=== PATIENT | female | born 1995 | race Caucasian/White ===

== ENCOUNTER 2019-08-14 21:12 | Emergency (ER) | payer BC, OTHER ==
[2019-08-14] MEDS ORDERED: solu-MEDROL 125 MG IV ONE (21:39)
[2019-08-14] MEDS ORDERED: BENADRYL 50 MG/ML IV ONE (21:39)
[2019-08-14] MEDS ORDERED: Inapsine 5 MG/2 ML IV ONE (21:39)
[2019-08-14] MEDS ORDERED: Sodium Chloride 0.9% 1000 ML 1,000 ML IV STA (21:39)
[2019-08-14] MEDS ORDERED: TORAdol 30 mg Injection IV ONE (21:39)
[2019-08-14] MEDS ORDERED: TYLENOL 325 MG PO ONE (21:39)
--- NOTE | 2019-08-14 21:46 | ERPHSYRPT ---
- History of Present Illness Time Seen by Provider: 08/14/19 21:21 Source: patient Exam Limitations: no limitations Patient Subjective Stated Complaint: pt c/o headache since 1300 today, behind eyes and across forehead. Triage Nursing Assessment: pt c/o headache across forehead and behind her eyes since 1300 today, throbbing, sharp pain. Pt took tylenol twice today with no relief. Physician History: Location: frontal headache Quality: sharp Radiation: into posterior head Severity: moderate Duration: 1 pm today Timing: gradual, not thunder clap Modifying factors/associated signs and symptoms: h/o headaches but no official dx of migraines. No red flag symptoms for headaches. no falls or trauma. Has tried home OTC medication and cold/hot rags. Timing/Duration: today Quality: sharpness Head Pain Location: frontal Severity of Pain-Max: none Severity of Pain-Current: none Recent Head Trauma: no recent headache/trauma Modifying Factors: Improves With: cold therapy, rest Associated Symptoms: denies symptoms Previous symptoms: other (h/o fequent headaches, but no dx of migraine) Allergies/Adverse Reactions: shrimp Allergy (Severe, Verified 08/14/19 21:34) Difficulty Breathing bee pollen Adverse Reaction (Verified 08/14/19 21:35) Swelling Home Medications: Aripiprazole [Abilify] 5 mg PO DAILY 08/14/19 [History] Paroxetine HCl [Paxil] 20 mg PO DAILY 08/14/19 [History] Hx Tetanus, Diphtheria Vaccination/Date Given: Yes Hx Influenza Vaccination/Date Given: No Hx Pneumococcal Vaccination/Date Given: No Immunizations Up to Date: Yes - Review of Systems Constitutional: No Fever, No Chills Eyes: No Symptoms Ears, Nose, & Throat: No Symptoms Respiratory: No Cough, No Dyspnea Cardiac: No Chest Pain, No Edema, No Syncope Abdominal/Gastrointestinal: No Abdominal Pain, No Nausea, No Vomiting, No Diarrhea Genitourinary Symptoms: No Dysuria Musculoskeletal: No Back Pain, No Neck Pain Skin: No Rash Neurological: Headache, No Dizziness, No Focal Weakness, No Sensory Changes Psychological: No Symptoms Endocrine: No Symptoms All Other Systems: Reviewed and Negative - Past Medical History Pertinent Past Medical History: Yes Neurological History: No Pertinent History ENT History: No Pertinent History Cardiac History: No Pertinent History Respiratory History: No Pertinent History Endocrine Medical History: No Pertinent History Musculoskeletal History: No Pertinent History GI Medical History: No Pertinent History History: No Pertinent History Psycho-Social History: Anxiety, Attention Deficit Disorder, Bipolar, Depression Female Reproductive Disorders: Menstrual Problems - Past Surgical History Past Surgical History: No - Social History Smoking Status: Current every day smoker How long have you smoked: 3 yrs Exposure to second hand smoke: Yes Drug Use: none Patient Lives Alone: No - Female History Hx Last Menstrual Period: unsure Hx Now: No - Nursing Vital Signs Nursing Vital Signs: Initial Vital Signs Temperature 97.9 F 08/14/19 21:25 Pulse Rate 62 08/14/19 21:25 Respiratory Rate 18 08/14/19 21:25 Blood Pressure 115/52 08/14/19 21:25 O2 Sat by Pulse Oximetry 98 08/14/19 21:25 Pain Scale Pain Intensity 8 - Physical Exam General Appearance: no apparent distress Eye Exam: PERRL/EOMI Ears, Nose, Throat Exam: normal ENT inspection, moist mucous membranes Neck Exam: normal inspection, supple, full range of motion, No meningismus Respiratory Exam: normal breath sounds, lungs clear Cardiovascular Exam: regular rate/rhythm, normal heart sounds Gastrointestinal/Abdominal Exam: soft, No tenderness, No distention Back Exam: normal inspection, normal range of motion Mental Status Exam: alert, 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 Speech: clear and fluent with good repetition, comprehension, and naming. Motor: There is no pronator drift of out-stretched arms. Muscle bulk and tone are normal. Strength is full bilaterally. Reflexes: Reflexes are 2+ and symmetric at the biceps, triceps, knees, and ankles. Plantar responses are flexor. Sensory: Light touch sense are intact in bilateral upper and lower extremities. There is no sign of neglect. Coordination: Rapid alternating movements are intact. There is no dysmetria on [id number] and [id number]. There are no abnormal or extraneous movements. Romberg is absent. Gait/Stance: Posture is normal. Gait is steady with normal steps, base, arm swing, and turning. Heel and toe walking are normal. Tandem gait is normal. No obvious deformity, sensation intact, 2+ capillary refill, 2 point tactile discrimination intact. 5 out of 5 strength. Full range of motion without pain. Compartments are soft, nontender. Overlying skin shows no tenting, bruising, ecchymosis. Ordered Tests: Active Orders 24 hr Category Date Time Status IV Insertion STAT Care 08/14/19 21:39 Active Pulse Oximetry (ED) STAT Care 08/14/19 21:39 Active HEAD WITHOUT CONTRAST [CT] Stat Exams 08/14/19 22:27 Taken CBC W DIFF Stat Lab 08/14/19 22:00 Completed CMP Stat Lab 08/14/19 22:00 Completed HCG QUALITATIVE,SERUM Stat Lab 08/14/19 22:00 Completed UA W/RFX UR CULTURE Stat Lab 08/14/19 21:39 Ordered Medication Summary Discontinued Medications Generic Name Dose Route Start Last Admin Trade Name Freq PRN Reason Stop Dose Admin Acetaminophen 975 mg 08/14/19 21:39 08/14/19 22:44 Tylenol 325 Mg PO 08/14/19 21:40 975 mg STAT ONE Administration Acetaminophen Confirm 08/14/19 22:44 Tylenol 325 Mg Administered 08/14/19 22:45 Dose 975 mg .ROUTE .STK-MED ONE Diphenhydramine HCl 50 mg 08/14/19 21:39 08/14/19 22:41 Benadryl 50 Mg/Ml IV 08/14/19 21:40 50 mg STAT ONE Administration Diphenhydramine HCl Confirm 08/14/19 22:39 Benadryl 50 Mg/Ml Administered 08/14/19 22:40 Dose 50 mg .ROUTE .STK-MED ONE Droperidol 1.25 mg 08/14/19 21:39 08/14/19 22:41 Inapsine 5 Mg/2 Ml IV 08/14/19 21:40 1.25 mg STAT ONE Administration Droperidol Confirm 08/14/19 22:39 Inapsine 5 Mg/2 Ml Administered 08/14/19 22:40 Dose 5 mg .ROUTE .STK-MED ONE Sodium Chloride 1,000 mls @ 999 mls/hr 08/14/19 21:39 08/14/19 22:43 Sodium Chloride 0.9% 1000 Ml IV 08/14/19 22:39 999 mls/hr .Q1H1M STA Administration Sodium Chloride Confirm 08/14/19 22:40 Sodium Chloride 0.9% 1000 Ml Administered 08/14/19 22:41 Dose 1,000 mls @ ud .ROUTE .STK-MED ONE Ketorolac Tromethamine 30 mg 08/14/19 21:39 08/14/19 22:42 Toradol 30 Mg Injection IV 08/14/19 21:40 30 mg STAT ONE Administration Ketorolac Tromethamine Confirm 08/14/19 22:39 Toradol 30 Mg Injection Administered 08/14/19 22:40 Dose 30 mg .ROUTE .STK-MED ONE Methylprednisolone Sodium Succinate 125 mg 08/14/19 21:39 08/14/19 22:43 Solu-Medrol 125 Mg IV 08/14/19 21:40 125 mg STAT ONE Administration Methylprednisolone Sodium Succinate Confirm 08/14/19 22:39 Solu-Medrol 125 Mg Administered 08/14/19 22:40 Dose 125 mg .ROUTE .STK-MED ONE Lab/Rad Data: Laboratory Result Diagrams 08/14/19 22:00 08/14/19 22:00 Laboratory Results 08/14/19 08/14/19 08/14/19 Range/Units 22:00 22:00 22:00 WBC 6.3 (4.0-10.5) K/mm3 RBC 4.62 (4.1-5.4) M/mm3 Hgb 13.8 (12.0-16.0) gm/dl Hct 41.9 (35-47) % MCV 90.7 (78-100) fl MCH 29.9 (26-32) pg MCHC 32.9 (32-36) g/dl RDW 12.9 (11.5-14.0) % Plt Count 326 (150-450) K/mm3 MPV 10.7 (7.5-11.0) fl Gran % 42.0 (36.0-66.0) % Eos # (Auto) 0.21 (0-0.5) Absolute Lymphs (auto) 2.85 (1.0-4.6) Absolute Monos (auto) 0.53 (0.0-1.3) Lymphocytes % 45.6 H (24.0-44.0) % Monocytes % 8.5 (0.0-12.0) % Eosinophils % 3.4 (0.00-5.0) % Basophils % 0.5 (0.0-0.4) % Absolute Granulocytes 2.63 (1.4-6.9) Basophils # 0.03 (0-0.4) Sodium 141 (137-145) mmol/L Potassium 4.1 (3.5-5.1) mmol/L Chloride 105 (98-107) mmol/L Carbon Dioxide 29 (22-30) mmol/L Anion Gap 10.1 (5-15) MEQ/L BUN 5 L (7-17) mg/dL Creatinine 0.68 (0.52-1.04) mg/dL Estimated GFR > 60.0 ML/MIN Glucose 88 (74-106) mg/dL Calcium 9.6 (8.4-10.2) mg/dL Total Bilirubin 0.50 (0.2-1.3) mg/dL AST 42 H (14-36) U/L ALT 44 H (0-35) U/L Alkaline Phosphatase 74 (38-126) U/L Serum Total Protein 7.9 (6.3-8.2) g/dL Albumin 4.3 (3.5-5.0) g/dL Serum , Qual NEGATIVE (Negative) - Progress Progress: improved Air Movement: good Progress Note: 08/14/19 21:46 Ddx includes head bleed, tumor, tension headache, migraine We will give migraine cocktail, basic labs, fluids, head CT 08/14/19 23:29 CT scan is negative. Patient feels improved with medication. Neurological reexam remained normal. At this point, patient will need reexam with PCP in the AM. Otherwise, return here for new or changing symptoms. - Departure Departure Disposition: Home Clinical Impression: Headache Condition: Stable Critical Care Time: No Referrals: LAZARA SHAY NP [Primary Care Provider] - Instructions: Headache, Adult (DC) Additional Instructions: Neurological reexam in 24 hours with PCP. return for new or changing symptoms.
[2019-08-14 22:05] LABS: Absolute Neutrophil Ct (ANC) 2.63 (1.4-6.9); BASOPHIL % 0.5 % (0.0-0.4); Basophil (Absolute #) 0.03 (0-0.4); Eosinophil % 3.4 % (0.00-5.0); Eosinophil (Absolute #) 0.21 (0-0.5); Hematocrit 41.9 % (35-47); Hemoglobin 13.8 gm/dl (12.0-16.0); Lymphocyte (Absolute #) 2.85 (1.0-4.6); Lymphocytes % 45.6 % (24.0-44.0); Mean Cell Volume 90.7 fl (78-100); Mean Corpuscular Hemoglobin 29.9 pg (26-32); Mean Corpuscular Hgb Concent. 32.9 g/dl (32-36); Mean Platelet Volume 10.7 fl (7.5-11.0); Monocyte (Absolute #) 0.53 (0.0-1.3); Monocytes % 8.5 % (0.0-12.0); Platelet Count 326 K/mm3 (150-450); Red Blood Count 4.62 M/mm3 (4.1-5.4); Red Cell Distribution Width 12.9 % (11.5-14.0); White Blood Count 6.3 K/mm3 (4.0-10.5)
[2019-08-14 22:20] LABS: ALBUMIN 4.3 g/dL (3.5-5.0); ALKALINE PHOSPHATASE 74 U/L (38-126); ANION GAP 10.1 MEQ/L (5-15); BLOOD UREA NITROGEN 5 mg/dL (7-17); CHLORIDE 105 mmol/L (98-107); Calcium 9.6 mg/dL (8.4-10.2); Carbon Dioxide 29 mmol/L (22-30); Creatinine 1 0.68 mg/dL (0.52-1.04); Glucose 88 mg/dL (74-106); Potassium 4.1 mmol/L (3.5-5.1); SGOT/AST 42 U/L (14-36); SGPT/ALT 44 U/L (0-35); SODIUM 141 mmol/L (137-145); Total Protein 7.9 g/dL (6.3-8.2)
[2019-08-14] MEDS ORDERED: TORAdol 30 mg Injection ONE (22:39)
[2019-08-14] MEDS ORDERED: Inapsine 5 MG/2 ML ONE (22:39)
[2019-08-14] MEDS ORDERED: solu-MEDROL 125 MG ONE (22:39)
[2019-08-14] MEDS ORDERED: BENADRYL 50 MG/ML ONE (22:39)
[2019-08-14] MEDS ORDERED: Sodium Chloride 0.9% 1000 ML 1,000 ML ONE (22:40)
[2019-08-14] MEDS ORDERED: TYLENOL 325 MG ONE (22:44)
[2019-08-14 23:22] LABS: Appearance CLEAR (CLEAR); Bilirubin NEGATIVE (NEGATIVE); Blood SMALL Ery/ul (0-5); Glucose NEGATIVE (NEGATIVE); Ketones NEGATIVE (NEGATIVE); Leukocyte Esterase NEGATIVE (NEGATIVE); Nitrite NEGATIVE (NEGATIVE); Protein,Urine Dip NEGATIVE (Negative); Specific Gravity 1.005 (1.005-1.025); Urobilinogen NEGATIVE mg/dL (0-1); WBC 0-2 /HPF (0-5)
[2019-08-14 23:46] VITALS: BP 121/95; PULSE 64; O2SAT 97
--- NOTE | 2019-08-15 08:48 | XRAY ---
Indication: Headache and dizziness. Multiple contiguous axial images obtained through the head without contrast. Comparison: None Normal appearing brain parenchyma, ventricles, and bony calvarium. Near complete opacification of the left middle ear and left mastoid air cells presumed inflammatory. Remaining visualized paranasal sinuses and right mastoid air cells are clear. Impression: 1. Left middle ear and left mastoid air cell opacification presumed inflammatory. 2. Remaining CT head without contrast exam is normal. Comment: Preliminary interpretation was made by [facility]. No discrepancy.
== END 2019-08-14 23:47 | disposition home or self-care (01) ==
LOC: ED 21:12
DX: R51 Headache (principal)
CPT/HCPCS: 36000; 36415; 70450; 80053; 81001; 81025; 85025; 94760; 96374; 96375; 99284; J1200; J1885; J2930; A9270-GY

== ENCOUNTER 2020-03-05 19:05 | Emergency (ER) | payer BC, OTHER ==
--- NOTE | 2020-03-05 19:09 | ERPHSYRPT ---
- History of Present Illness Time Seen by Provider: 03/05/20 19:09 Historian: patient Exam Limitations: no limitations Physician History: This is a 24-year-old obese white female who has had no prior abdominal surgeries and presents with 2-week history of lower abdominal pain. Patient does not have regular menstrual periods. Patient denies nausea vomiting diarrhea. She denies vaginal discharge. Pain has worsened in the last 2 weeks. Timing/Duration: week(s) Abdominal Pain Onset Location: RLQ, LLQ Pain Radiation: no radiation Severity of Pain-Max: moderate Severity of Pain-Current: mild Modifying Factors: Improves With: nothing Associated Symptoms: denies symptoms Previous symptoms: no prior history Allergies/Adverse Reactions: shrimp Allergy (Severe, Verified 08/14/19 21:34) Difficulty Breathing bee pollen Adverse Reaction (Verified 08/14/19 21:35) Swelling Home Medications: Aripiprazole [Abilify] 5 mg PO DAILY 08/14/19 [History] Paroxetine HCl [Paxil] 40 mg PO DAILY 08/14/19 [History] Hx Tetanus, Diphtheria Vaccination/Date Given: Yes Hx Influenza Vaccination/Date Given: No Hx Pneumococcal Vaccination/Date Given: No Travel Risk - International Travel Have you traveled outside of the country in past 3 weeks: No - Coronavirus Screening Are you exhibiting any of the following symptoms?: No Close contact with a COVID-19 positive Pt in past 14-21 Days: No - Review of Systems Constitutional: No Symptoms Eyes: No Symptoms Ears, Nose, & Throat: No Symptoms Respiratory: No Symptoms Cardiac: No Symptoms Abdominal/Gastrointestinal: Abdominal Pain (Bilateral lower quadrants), No Nausea, No Vomiting, No Diarrhea, No Constipation Genitourinary Symptoms: No Symptoms, No Dysuria, No Urgency, No Urinary Retention, No Flank Pain Musculoskeletal: No Symptoms Skin: No Symptoms Neurological: No Symptoms Psychological: No Symptoms Endocrine: No Symptoms Hematologic/Lymphatic: No Symptoms Immunological/Allergic: No Symptoms All Other Systems: Reviewed and Negative - Past Medical History Pertinent Past Medical History: Yes Neurological History: No Pertinent History ENT History: No Pertinent History Cardiac History: No Pertinent History Respiratory History: No Pertinent History Endocrine Medical History: No Pertinent History Musculoskeletal History: No Pertinent History GI Medical History: No Pertinent History History: No Pertinent History Psycho-Social History: Anxiety, Attention Deficit Disorder, Bipolar, Depression Female Reproductive Disorders: Menstrual Problems - Past Surgical History Past Surgical History: No - Social History Smoking Status: Current every day smoker How long have you smoked: 3 yrs Exposure to second hand smoke: Yes Drug Use: none Patient Lives Alone: No - Nursing Vital Signs Nursing Vital Signs: Initial Vital Signs Temperature 98.3 F 03/05/20 19:20 Pulse Rate 77 03/05/20 19:20 Respiratory Rate 18 03/05/20 19:20 Blood Pressure 135/71 03/05/20 19:20 O2 Sat by Pulse Oximetry 97 03/05/20 19:20 Pain Scale Pain Intensity 5 - Physical Exam General Appearance: no apparent distress, alert, anxiety Eye Exam: PERRL/EOMI, eyes nml inspection Ears, Nose, Throat Exam: normal ENT inspection, moist mucous membranes Neck Exam: normal inspection, non-tender, supple, full range of motion Respiratory Exam: normal breath sounds, lungs clear, airway intact, No chest tenderness, No respiratory distress Cardiovascular Exam: regular rate/rhythm, normal heart sounds, normal peripheral pulses Gastrointestinal/Abdomen Exam: soft, normal bowel sounds, tenderness (Mild bilateral lower quadrant pain), guarding, No rebound Pelvic Exam: not done Rectal Exam: not done Back Exam: normal inspection, normal range of motion, No CVA tenderness Extremity Exam: normal inspection, normal range of motion, pelvis stable Neurologic Exam: alert, oriented x 3, 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, 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 Skin Exam: normal color, warm, dry Lymphatic Exam: No adenopathy SpO2 Interpretation: normal O2 Delivery: Room Air - Course Nursing assessment & vital signs reviewed: Yes Ordered Tests: Active Orders 24 hr Category Date Time Status IV Insertion STAT Care 03/05/20 20:03 Active ABDOMEN AND PELVIS W/0 CONTRAS [CT] Stat Exams 03/05/20 20:00 Taken AMYLASE Stat Lab 03/05/20 20:40 Completed CBC W DIFF Stat Lab 03/05/20 20:40 Completed CMP Stat Lab 03/05/20 20:40 Completed CULTURE,URINE Stat Lab 03/05/20 Received HCG,QUALITATIVE URINE Stat Lab 03/05/20 20:30 Completed LIPASE Stat Lab 03/05/20 20:40 Completed Lactic Acid Stat Lab 03/05/20 12:14 Completed UA W/RFX UR CULTURE Stat Lab 03/05/20 Completed Medication Summary Discontinued Medications Generic Name Dose Route Start Last Admin Trade Name Freq PRN Reason Stop Dose Admin Hydromorphone HCl 0.5 mg 03/05/20 20:03 03/05/20 20:43 Hydromorphone 1 Mg/Ml Ampule IV 03/05/20 20:04 0.5 mg STAT ONE Administration Hydromorphone HCl Confirm 03/05/20 20:40 Hydromorphone 1 Mg/Ml Ampule Administered 03/05/20 20:41 Dose 1 mg .ROUTE .STK-MED ONE Sodium Chloride 1,000 mls @ 999 mls/hr 03/05/20 20:03 03/05/20 20:42 Sodium Chloride 0.9% 1000 Ml IV 03/05/20 21:03 999 mls/hr .Q1H1M STA Administration Sodium Chloride Confirm 03/05/20 20:36 Sodium Chloride 0.9% 1000 Ml Administered 03/05/20 20:37 Dose 1,000 mls @ ud .ROUTE .STK-MED ONE Ondansetron HCl 4 mg 03/05/20 20:03 03/05/20 20:43 Zofran 4 Mg/2 Ml Vial IV 03/05/20 20:04 4 mg STAT ONE Administration Ondansetron HCl Confirm 03/05/20 20:36 Zofran 4 Mg/2 Ml Vial Administered 03/05/20 20:37 Dose 4 mg .ROUTE .STK-MED ONE Lab/Rad Data: Laboratory Result Diagrams 03/05/20 20:40 03/05/20 20:40 Laboratory Results 03/05/20 03/05/20 03/05/20 Range/Units Unknown 20:40 20:40 WBC 7.3 (4.0-10.5) K/mm3 RBC 4.71 (4.1-5.4) M/mm3 Hgb 13.7 (12.0-16.0) gm/dl Hct 42.6 (35-47) % MCV 90.4 (78-100) fl MCH 29.1 (26-32) pg MCHC 32.2 (32-36) g/dl RDW 13.1 (11.5-14.0) % Plt Count 282 (150-450) K/mm3 MPV 11.3 H (7.5-11.0) fl Gran % 59.4 (36.0-66.0) % Eos # (Auto) 0.11 (0-0.5) Absolute Lymphs (auto) 2.32 (1.0-4.6) Absolute Monos (auto) 0.51 (0.0-1.3) Lymphocytes % 31.7 (24.0-44.0) % Monocytes % 7.0 (0.0-12.0) % Eosinophils % 1.5 (0.00-5.0) % Basophils % 0.4 (0.0-0.4) % Absolute Granulocytes 4.35 (1.4-6.9) Basophils # 0.03 (0-0.4) Sodium 140 (137-145) mmol/L Potassium 3.9 (3.5-5.1) mmol/L Chloride 107 (98-107) mmol/L Carbon Dioxide 25 (22-30) mmol/L Anion Gap 11.8 (5-15) MEQ/L BUN 13 (7-17) mg/dL Creatinine 0.67 (0.52-1.04) mg/dL Estimated GFR > 60.0 ML/MIN Glucose 93 (74-106) mg/dL Lactic Acid (0.4-2.0) Calcium 9.3 (8.4-10.2) mg/dL Total Bilirubin 0.70 (0.2-1.3) mg/dL AST 42 H (14-36) U/L ALT 61 H (0-35) U/L Alkaline Phosphatase 62 (38-126) U/L Serum Total Protein 7.6 (6.3-8.2) g/dL Albumin 4.2 (3.5-5.0) g/dL Amylase 44 (30-110) U/L Lipase 17 L (23-300) U/L Urine Color YELLOW (YELLOW) Urine Appearance SLIGHTLY CLOUDY (CLEAR) Urine pH 6.0 (5-6) Ur Specific [place] 1.018 (1.005-1.025) Urine Protein NEGATIVE (Negative) Urine Ketones NEGATIVE (NEGATIVE) Urine Blood LARGE (0-5) Mukesh/ul Urine Nitrite NEGATIVE (NEGATIVE) Urine Bilirubin NEGATIVE (NEGATIVE) Urine Urobilinogen NEGATIVE (0-1) mg/dL Ur Leukocyte Esterase NEGATIVE (NEGATIVE) Urine WBC (Auto) 11-15 (0-5) /HPF Urine RBC (Auto) 51-100 (0-2) /HPF U Epithel Cells (Auto) RARE (FEW) /HPF Urine Bacteria (Auto) RARE (NEGATIVE) /HPF Urine Mucus (Auto) SLIGHT (NEGATIVE) /HPF Urine Culture Reflexed YES (NO) Urine Glucose NEGATIVE (NEGATIVE) mg/dL Urine HCG, Qual (Negative) 03/05/20 03/05/20 Range/Units 20:30 12:14 WBC (4.0-10.5) K/mm3 RBC (4.1-5.4) M/mm3 Hgb (12.0-16.0) gm/dl Hct (35-47) % MCV (78-100) fl MCH (26-32) pg MCHC (32-36) g/dl RDW (11.5-14.0) % Plt Count (150-450) K/mm3 MPV (7.5-11.0) fl Gran % (36.0-66.0) % Eos # (Auto) (0-0.5) Absolute Lymphs (auto) (1.0-4.6) Absolute Monos (auto) (0.0-1.3) Lymphocytes % (24.0-44.0) % Monocytes % (0.0-12.0) % Eosinophils % (0.00-5.0) % Basophils % (0.0-0.4) % Absolute Granulocytes (1.4-6.9) Basophils # (0-0.4) Sodium (137-145) mmol/L Potassium (3.5-5.1) mmol/L Chloride (98-107) mmol/L Carbon Dioxide (22-30) mmol/L Anion Gap (5-15) MEQ/L BUN (7-17) mg/dL Creatinine (0.52-1.04) mg/dL Estimated GFR ML/MIN Glucose (74-106) mg/dL Lactic Acid 0.7 (0.4-2.0) Calcium (8.4-10.2) mg/dL Total Bilirubin (0.2-1.3) mg/dL AST (14-36) U/L ALT (0-35) U/L Alkaline Phosphatase (38-126) U/L Serum Total Protein (6.3-8.2) g/dL Albumin (3.5-5.0) g/dL Amylase (30-110) U/L Lipase (23-300) U/L Urine Color (YELLOW) Urine Appearance (CLEAR) Urine pH (5-6) Ur Specific [place] (1.005-1.025) Urine Protein (Negative) Urine Ketones (NEGATIVE) Urine Blood (0-5) Mukesh/ul Urine Nitrite (NEGATIVE) Urine Bilirubin (NEGATIVE) Urine Urobilinogen (0-1) mg/dL Ur Leukocyte Esterase (NEGATIVE) Urine WBC (Auto) (0-5) /HPF Urine RBC (Auto) (0-2) /HPF U Epithel Cells (Auto) (FEW) /HPF Urine Bacteria (Auto) (NEGATIVE) /HPF Urine Mucus (Auto) (NEGATIVE) /HPF Urine Culture Reflexed (NO) Urine Glucose (NEGATIVE) mg/dL Urine HCG, Qual NEGATIVE (Negative) - Progress Progress: unchanged Progress Note: 03/05/20 22:42 CAT scan of the abdomen and pelvis shows no acute intra-abdominal abnormality Counseled pt/family regarding: lab results, diagnosis, need for follow-up, rad results - Departure Departure Disposition: Home Clinical Impression: Abdominal pain Condition: Stable Critical Care Time: No Referrals: LAZARA SHAY NP [NON-STAFF PHY W/O PRIVILEGES] - Additional Instructions: Drink plenty of fluids. Use Tylenol and ibuprofen for pain. Follow-up with your primary care physician for persistent symptoms. Return to the emergency department if symptoms worsen
[2020-03-05] MEDS ORDERED: Zofran 4 MG/2 ML VIAL IV ONE (20:03)
[2020-03-05] MEDS ORDERED: Sodium Chloride 0.9% 1000 ML 1,000 ML IV STA (20:03)
[2020-03-05] MEDS ORDERED: Hydromorphone 1 mg/ml Ampule IV ONE ×2 (20:03→23:03)
[2020-03-05] MEDS ORDERED: Zofran 4 MG/2 ML VIAL ONE (20:36)
[2020-03-05] MEDS ORDERED: Sodium Chloride 0.9% 1000 ML 1,000 ML ONE (20:36)
[2020-03-05] MEDS ORDERED: Hydromorphone 1 mg/ml Ampule ONE ×2 (20:40→23:34)
[2020-03-05 20:45] LABS: Absolute Neutrophil Ct (ANC) 4.35 (1.4-6.9); BASOPHIL % 0.4 % (0.0-0.4); Basophil (Absolute #) 0.03 (0-0.4); Eosinophil % 1.5 % (0.00-5.0); Eosinophil (Absolute #) 0.11 (0-0.5); Hematocrit 42.6 % (35-47); Hemoglobin 13.7 gm/dl (12.0-16.0); Lymphocyte (Absolute #) 2.32 (1.0-4.6); Lymphocytes % 31.7 % (24.0-44.0); Mean Cell Volume 90.4 fl (78-100); Mean Corpuscular Hemoglobin 29.1 pg (26-32); Mean Corpuscular Hgb Concent. 32.2 g/dl (32-36); Mean Platelet Volume 11.3 fl (7.5-11.0); Monocyte (Absolute #) 0.51 (0.0-1.3); Neutrophil % 59.4 % (36.0-66.0); Platelet Count 282 K/mm3 (150-450); Red Blood Count 4.71 M/mm3 (4.1-5.4); Red Cell Distribution Width 13.1 % (11.5-14.0); White Blood Count 7.3 K/mm3 (4.0-10.5)
[2020-03-05 21:02] LABS: ALBUMIN 4.2 g/dL (3.5-5.0); ALKALINE PHOSPHATASE 62 U/L (38-126); AMYLASE 44 U/L (30-110); ANION GAP 11.8 MEQ/L (5-15); BLOOD UREA NITROGEN 13 mg/dL (7-17); CHLORIDE 107 mmol/L (98-107); Calcium 9.3 mg/dL (8.4-10.2); Carbon Dioxide 25 mmol/L (22-30); Creatinine 1 0.67 mg/dL (0.52-1.04); Glucose 93 mg/dL (74-106); LIPASE 17 U/L (23-300); Potassium 3.9 mmol/L (3.5-5.1); SGOT/AST 42 U/L (14-36); SGPT/ALT 61 U/L (0-35); SODIUM 140 mmol/L (137-145); Total Protein 7.6 g/dL (6.3-8.2)
[2020-03-05 22:32] LABS: Appearance SLIGHTLY CLOUDY (CLEAR); Bacteria RARE /HPF (NEGATIVE); Bilirubin NEGATIVE (NEGATIVE); Blood LARGE Ery/ul (0-5); Epithelial Cells RARE /HPF (FEW); Glucose NEGATIVE (NEGATIVE); Ketones NEGATIVE (NEGATIVE); Leukocyte Esterase NEGATIVE (NEGATIVE); Mucus SLIGHT /HPF (NEGATIVE); Nitrite NEGATIVE (NEGATIVE); Protein,Urine Dip NEGATIVE (Negative); RBC 51-100 /HPF (0-2); Specific Gravity 1.018 (1.005-1.025); Urobilinogen NEGATIVE mg/dL (0-1)
[2020-03-05 22:54] VITALS: BP 135/70; PULSE 84; O2SAT 100
[2020-03-05] MEDS ORDERED: NORCO 5/325 MG PO ONE (23:03)
[2020-03-05] MEDS ORDERED: Phenergan 25 MG INJ IM ONE (23:03)
[2020-03-05] MEDS ORDERED: Phenergan 25 MG INJ ONE (23:33)
[2020-03-05] MEDS ORDERED: NORCO 5/325 MG ONE (23:33)
--- NOTE | 2020-03-06 08:09 | XRAY ---
Indication: Lower abdomen pain 3 days. Multiple contiguous axial images obtained through the abdomen and pelvis without contrast as ordered. Comparison: None. Lung bases clear. Heart is not enlarged. Noncontrasted stomach and bowel loops appear nonobstructed. Appendix not seen. Minimal scattered colonic diverticulosis. No free fluid/air. Remaining liver, gallbladder, pancreas, spleen, adrenal glands, kidneys, ureters, bladder, uterus, and aorta appear unremarkable for noncontrast exam. Osseous structures intact. No ventral or inguinal hernias. Impression: 1. Minimal colonic diverticulosis. 2. Remaining CT abdomen/pelvis without contrast exam is negative.
== END 2020-03-05 23:55 | disposition home or self-care (01) ==
LOC: ED 19:05
DX: R10.9 Unspecified abdominal pain (principal)
CPT/HCPCS: 36000; 36415; 74176; 80053; 81001; 82150; 83605; 83690; 84703; 85025; 87086; 96372; 96374; 96375; 96376; 99284; J1170; J2405; J2550; A9270-GY